=== PATIENT | male | born 1975 | race Caucasian/White ===

== ENCOUNTER 2020-05-25 09:58 | Emergency (ER) | payer BC ==
[2020-05-25] MEDS ORDERED: Ketorolac Tromethamine 60 MG/2 ML VIAL ONE (10:20)
== END 2020-05-25 11:04 | disposition home or self-care (01) ==
LOC: BURERS 09:58
DX: S39.012A Strain of muscle, fascia and tendon of lower back, initial encounter (principal); I10 Essential (primary) hypertension; F17.210 Nicotine dependence, cigarettes, uncomplicated; Z79.899 Other long term (current) drug therapy; X50.9XXA Other and unspecified overexertion or strenuous movements or postures, initial encounter
CPT/HCPCS: 96372; 99283; J1885